=== PATIENT | female | born 1940 | race Caucasian/White ===

== ENCOUNTER 2017-03-17 14:24 | Emergency (ER) | payer OTHER, MEDICARE ==
[~2017-03-17] VITALS: Ht 170.2 cm; Wt 88.9 kg
[2017-03-17 16:00] LABS: BASOPHIL COUNT 0.1 K/uL (0-0.1); EOSINOPHIL (%) 3.2 % (0-5); EOSINOPHIL COUNT 0.3 K/uL (0-0.3); HEMATOCRIT 40.8 % (36.0-46.0); IMMATURE GRANULOCYTE (%) 0.3 % (0.0-0.7); INSTRUMENT ABS NEUTROPHIL CT 4.2 K/uL; LYMPHOCYTE COUNT 2.5 K/uL (1.0-2.8); MCH 28.8 PG (29.0-34.0); MCHC 33.8 G/DL (30.0-36.0); MEAN PLAT.VOLUME 9.1 uM^3 (9.5-12.4); MONOCYTE (%) 10.8 % (3-12); MONOCYTE COUNT 0.8 K/uL (0-0.8); NEUTROPHIL (%) 53.6 % (45-76); NEUTROPHIL COUNT 4.2 K/uL (1.8-6.4); PLATELET COUNT 401 K/uL (156-360); RBC DIS.WIDTH-CV 13.7 % (11.8-14.6); RBC DIS.WIDTH-SD 42.8 % (39-53); WHITE BLOOD COUNT 7.8 K/uL (4.1-10.2)
[2017-03-17 16:08] LABS: CHLORIDE 106 mEq/L (99-109); POTASSIUM 4.1 mEq/L (3.7-5.4); SODIUM 139 mEq/L (136-147)
[2017-03-17 16:09] LABS: MAGNESIUM 2.4 mg/dL (1.3-2.7)
[2017-03-17 16:10] LABS: GLUCOSE 91 mg/dL (70-99)
[2017-03-17 16:11] LABS: ANION GAP 10 MEQ/L (2-14)
[2017-03-17 16:14] LABS: GFR ESTIMATE (CALCULATED) > 59 mL/min/
[2017-03-17 16:15] LABS: UREA NITROGEN (BUN) 14 mg/dL (9-23)
[2017-03-17 16:21] LABS: ADD MIUA? NO; BILIRUBIN NEGATIVE; BLOOD NEGATIVE; COLOR STRAW ((YELLOW)); GLUCOSE (STRIP) NEGATIVE; KETONES NEGATIVE; LEUKOCYTES NEGATIVE; NITRITE NEGATIVE; PROTEIN (STRIP) NEGATIVE; SPECIFIC GRAVITY 1.006 (1.000-1.030); UCUL ADDED? NO; UROBILINOGEN 0.2 MG/DL (0.2-1.0)
[2017-03-17] MEDS ORDERED: LOMOTIL TABLET1 EACH PO (17:34)
[2017-03-17 18:09] VITALS: BP 133/85
== END 2017-03-17 18:09 | disposition home or self-care (01) ==
LOC: EDBD 14:24 → EME 14:24
PROVIDERS: Emergency Medicine
DX: R19.7 Diarrhea, unspecified (principal); Z88.1 Allergy status to other antibiotic agents; Z88.8 Allergy status to other drugs, medicaments and biological substances; Z88.2 Allergy status to sulfonamides; Z88.5 Allergy status to narcotic agent; I10 Essential (primary) hypertension
CPT/HCPCS: 80048; 81003; 83735; 85025; 99281; 99284; J7040

== ENCOUNTER 2018-01-30 05:24 | Inpatient (IN) | payer OTHER, MEDICARE ==
[~2018-01-30] VITALS: Ht 167.6 cm; Wt 86.0 kg
[~2018-01-30 05:24] MED LIST: LOMOTIL TABLET1 EACH PO
[2018-01-30 05:56] LABS: HEMATOCRIT 40.8 % (36.0-46.0); HEMOGLOBIN 14.2 G/DL (11.9-15.5); MCH 28.7 PG (29.0-34.0); MCHC 34.8 G/DL (30.0-36.0); MCV 82.4 FL (83-99); PLATELET COUNT 456 K/uL (156-360); RBC DIS.WIDTH-CV 14.7 % (11.8-14.6); RBC DIS.WIDTH-SD 43.8 % (39-53); RED BLOOD COUNT 4.95 M/uL (3.80-5.20); WHITE BLOOD COUNT 13.3 K/uL (4.1-10.2)
[2018-01-30 06:12] LABS: ALBUMIN 3.9 G/DL (3.2-4.8); CHLORIDE 103 MEQ/L (99-109); MAGNESIUM 1.8 mg/dl (1.3-2.7); POTASSIUM 3.9 MEQ/L (3.7-5.4); SODIUM 136 MEQ/L (136-147); TOTAL BILIRUBIN 0.7 MG/DL (0.0-1.0)
[2018-01-30 06:18] LABS: ALKALINE PHOSPHATASE 107 IU/L (3-129); ALT (GPT) 15 IU/L (3-49); AST (GOT) 21 IU/L (2-34); CREATININE 0.9 MG/DL (0.6-1.3); GFR ESTIMATE (CALCULATED) > 59 mL/min/; GLUCOSE 127 mg/dL (70-99); LIPASE 9 U/L (1.0-51.0); TOTAL PROTEIN 6.9 G/DL (6.4-8.3); UREA NITROGEN (BUN) 16 mg/dL (9-23)
[2018-01-30 07:39] LABS: TROP-I INTERPRETATION NEGATIVE; TROPONIN-I 0.01 ng/mL (0.0-0.30)
[2018-01-30 07:42] LABS: APPEARANCE CLEAR ((CLEAR)); BILIRUBIN NEGATIVE; BLOOD NEGATIVE; COLOR STRAW ((YELLOW)); GLUCOSE (STRIP) NEGATIVE; KETONES NEGATIVE; LEUKOCYTES NEGATIVE; NITRITE NEGATIVE; PROTEIN (STRIP) NEGATIVE; SPECIFIC GRAVITY 1.005 (1.000-1.030); UCUL ADDED? NO; UROBILINOGEN 0.2 MG/DL (0.2-1.0)
[2018-01-30] MEDS ORDERED: DILTIAZEM 24HR240 MG PO (07:51)
[2018-01-30] MEDS ORDERED: KLOR-CON M2020 MEQ PO (07:51)
[2018-01-30] MEDS ORDERED: VENTOLIN HFA18 GM IH (07:53)
[2018-01-30] MEDS ORDERED: FLONASE16 G1 BOTH NARES (07:53)
[2018-01-30] MEDS ORDERED: HYZAAR 100-11 TABLET PO (07:53)
[2018-01-30] MEDS ORDERED: LOW DOSE ASPIRI81 M1 PO (07:53)
[2018-01-30] MEDS ORDERED: VITAMIN D31000 UNIT PO (07:54)
[2018-01-30] MEDS ORDERED: CENTRUM SILVER1 EAC4 PO (07:55)
[2018-01-30] MEDS ORDERED: B-121000 MC2 PO (07:58)
[2018-01-30] MEDS ORDERED: GLUCOSAMINE &1 EAC1 PO (07:58)
[2018-01-30] MEDS ORDERED: CRANBERRY TABL1 EACH PO (07:58)
[2018-01-30] MEDS ORDERED: ANTIVERT12.5 MG PO (08:00)
[2018-01-30] MEDS ORDERED: ZOFRAN4 MG PO (08:00)
[2018-01-30 09:50] VITALS: BP 163/71
[2018-01-30 11:36] VITALS: BP 130/80
[2018-01-30 14:09] LABS: TROP-I INTERPRETATION NEGATIVE; TROPONIN-I < 0.01 ng/mL (0.0-0.30)
[2018-01-30 14:15] LABS: HDL CHOLESTEROL 37 MG/DL (Desirable>=50); LDL CHOLESTEROL 105 mg/dL (Desirable<100); NON-HDL CHOLESTEROL 126 mg/dL (Desirable<160); TOTAL CHOLESTEROL 163 mg/dL (Desirable<200); TRIGLYCERIDES 106 MG/DL (Normal: <150)
[2018-01-30 15:15] VITALS: BP 116/75
[2018-01-30 19:07] LABS: BASOPHIL (%) 0.4 % (0-1); EOSINOPHIL (%) 0.8 % (0-5); EOSINOPHIL COUNT 0.1 K/uL (0-0.3); HEMATOCRIT 41.2 % (36.0-46.0); HEMOGLOBIN 13.6 G/DL (11.9-15.5); IMMATURE GRANULOCYTE (%) 0.2 % (0.0-0.7); LYMPHOCYTE (%) 19.4 % (15-42); LYMPHOCYTE COUNT 2.1 K/uL (1.0-2.8); MCH 27.8 PG (29.0-34.0); MCV 84.1 FL (83-99); MONOCYTE (%) 10.8 % (3-12); MONOCYTE COUNT 1.2 K/uL (0-0.8); NEUTROPHIL (%) 68.4 % (45-76); NEUTROPHIL COUNT 7.3 K/uL (1.8-6.4); PLATELET COUNT 440 K/uL (156-360); RBC DIS.WIDTH-CV 14.8 % (11.8-14.6); RBC DIS.WIDTH-SD 45.4 % (39-53); WHITE BLOOD COUNT 10.7 K/uL (4.1-10.2)
[2018-01-30 19:20] LABS: INTER. NORMALIZED RATIO 1.2
[2018-01-30 19:23] LABS: ERTH.SED.RATE 37 MM/HR (0-30)
[2018-01-30 19:29] LABS: ALBUMIN 3.8 G/DL (3.2-4.8); ALKALINE PHOSPHATASE 119 IU/L (3-129); ALT (GPT) 27 IU/L (3-49); CHLORIDE 102 MEQ/L (99-109); GFR ESTIMATE (CALCULATED) 57 mL/min/; GLUCOSE 105 mg/dL (70-99); POTASSIUM 3.8 MEQ/L (3.7-5.4); SODIUM 136 MEQ/L (136-147); TOTAL BILIRUBIN 0.8 MG/DL (0.0-1.0); TOTAL PROTEIN 6.7 G/DL (6.4-8.3); UREA NITROGEN (BUN) 14 mg/dL (9-23)
[2018-01-30 19:30] LABS: AST (GOT) 34 IU/L (2-34)
[2018-01-30 20:00] VITALS: BP 122/69
[2018-01-30 20:33] LABS: TROP-I INTERPRETATION NEGATIVE; TROPONIN-I 0.02 ng/mL (0.0-0.30)
[2018-01-31] VITALS (7 sets, daily range): BP systolic 107–128; BP diastolic 61–76
[2018-01-31 05:12] LABS: HEMATOCRIT 39.3 % (36.0-46.0); HEMOGLOBIN 13.1 G/DL (11.9-15.5); MCH 28.3 PG (29.0-34.0); MCHC 33.3 G/DL (30.0-36.0); MCV 84.9 FL (83-99); PLATELET COUNT 390 K/uL (156-360); RBC DIS.WIDTH-CV 15.1 % (11.8-14.6); RBC DIS.WIDTH-SD 46.6 % (39-53); RED BLOOD COUNT 4.63 M/uL (3.80-5.20); WHITE BLOOD COUNT 10.1 K/uL (4.1-10.2)
[2018-01-31 06:08] LABS: CHLORIDE 104 MEQ/L (99-109); GFR ESTIMATE (CALCULATED) 57 mL/min/; GLUCOSE 99 mg/dL (70-99); POTASSIUM 3.9 MEQ/L (3.7-5.4); SODIUM 138 MEQ/L (136-147); UREA NITROGEN (BUN) 15 mg/dL (9-23)
[2018-01-31 15:26] LABS: CARCINOEMBR.ANTIGEN 0.9 NG/ML
[2018-02-01 04:09] VITALS: BP 103/64
[2018-02-01 08:00] VITALS: BP 117/72
[2018-02-01 11:09] VITALS: BP 102/53
[2018-02-01 16:42] VITALS: BP 121/78
[2018-02-01 19:07] VITALS: BP 131/74
[2018-02-01 23:17] VITALS: BP 126/63
[2018-02-02 03:28] VITALS: BP 132/69
[2018-02-02 05:25] LABS: HEMATOCRIT 34.2 % (36.0-46.0); HEMOGLOBIN 11.4 G/DL (11.9-15.5); MCH 28.4 PG (29.0-34.0); MCHC 33.3 G/DL (30.0-36.0); MCV 85.1 FL (83-99); PLATELET COUNT 362 K/uL (156-360); RBC DIS.WIDTH-SD 46.7 % (39-53); RED BLOOD COUNT 4.02 M/uL (3.80-5.20); WHITE BLOOD COUNT 6.9 K/uL (4.1-10.2)
[2018-02-02 05:52] LABS: CHLORIDE 105 MEQ/L (99-109); CREATININE 0.8 MG/DL (0.6-1.3); GFR ESTIMATE (CALCULATED) > 59 mL/min/; GLUCOSE 98 mg/dL (70-99); POTASSIUM 3.9 MEQ/L (3.7-5.4); SODIUM 139 MEQ/L (136-147); UREA NITROGEN (BUN) 13 mg/dL (9-23)
[2018-02-02 07:07] VITALS: BP 152/86
[2018-02-02] MEDS ORDERED: ELIQUIS5 MG PO (10:27)
[2018-02-02] MEDS ORDERED: ATORVASTATIN CA40 MG PO (10:27)
[2018-02-02] MEDS ORDERED: NITROSTAT0.4 MG SL (10:27)
[2018-02-02 12:15] VITALS: BP 144/91
== END 2018-02-02 14:25 | disposition home or self-care (01) | DRG 375 ==
LOC: EME → EDBD 05:24 → EME 05:24 → 4SOUTH 08:13 → EDOF 08:13 → ENRESERV 08:27 → EDOF 08:53 → 4SOUTH 09:16
PROVIDERS: Emergency Medicine; Hospitalist; Internal Medicine; Physician Assistant Medical
PROC: 0DBU3ZX Excision of Omentum, Percutaneous Approach, Diagnostic (ICD-10-PCS; principal; 2018-01-31)
DX: C78.6 Secondary malignant neoplasm of retroperitoneum and peritoneum (principal); I25.119 Atherosclerotic heart disease of native coronary artery with unspecified angina pectoris; I10 Essential (primary) hypertension; J98.11 Atelectasis; E86.0 Dehydration; K58.9 Irritable bowel syndrome, unspecified; R65.10 Systemic inflammatory response syndrome (SIRS) of non-infectious origin without acute organ dysfunction; R79.1 Abnormal coagulation profile; K76.0 Fatty (change of) liver, not elsewhere classified; D72.829 Elevated white blood cell count, unspecified; Z86.718 Personal history of other venous thrombosis and embolism; I34.1 Nonrheumatic mitral (valve) prolapse; Z85.41 Personal history of malignant neoplasm of cervix uteri; E66.9 Obesity, unspecified; Z68.30 Body mass index [BMI] 30.0-30.9, adult; R18.0 Malignant ascites; J45.20 Mild intermittent asthma, uncomplicated
CPT/HCPCS: 71046; 71275; 74176; 77012; 80048; 80053; 80061; 81003; 82378; 83605; 83615; 83690; 83735; 84484; 85025; 85027; 85379; 85610; 85651; 86304; 87040; 88305; 88341 TC; 88342 TC; 93005; 93306; 99202; 99281; 99285; G0378; J1650; J2405; J2543; J3010; J7030; J7050; J7120

== ENCOUNTER → 2018-05-23 | Outpatient (CLI) | payer OTHER, MEDICARE ==
[~2018-05-23] VITALS: Ht 167.6 cm; Wt 81.8 kg
[~2018-05-23] MED LIST changes: +ANTIVERT12.5 MG PO; +ATORVASTATIN CA40 MG PO; +B-121000 MC2 PO; +BENADRYL25 MG PO; +CENTRUM SILVER1 EAC4 PO; +CRANBERRY TABL1 EACH PO; +DILTIAZEM 24HR240 MG PO; +ELIQUIS5 MG PO; +ERYTHROMYC1 APPLICAT RIGHT EYE; +FLONASE16 G1 BOTH NARES; +GLUCOSAMINE &1 EAC1 PO; +HYZAAR 100-11 TABLET PO; +KLOR-CON M2020 MEQ PO; +LOW DOSE ASPIRI81 M1 PO; +MECLIZINE HCL12.5 M1 PO; +NITROSTAT0.4 MG SL; +TRAMADOL HCL50 MG PO; +VENTOLIN HFA18 GM IH; +VITAMIN D31000 UNIT PO; +ZOFRAN4 MG PO
[2018-05-23 09:38] VITALS: BP 143/86
[2018-05-23 09:42] LABS: HEMATOCRIT 32.3 % (36.0-46.0); HEMOGLOBIN 11.1 G/DL (11.9-15.5); MCH 32.3 PG (29.0-34.0); MCHC 34.4 G/DL (30.0-36.0); MCV 93.9 FL (83-99); RBC DIS.WIDTH-CV 19.6 % (11.8-14.6); RBC DIS.WIDTH-SD 66.4 % (39-53); RED BLOOD COUNT 3.44 M/uL (3.80-5.20); WHITE BLOOD COUNT 3.8 K/uL (4.1-10.2)
[2018-05-23 09:48] LABS: PLATELET COUNT 232 K/uL (156-360)
[2018-05-23 10:09] LABS: ALBUMIN 4.1 G/DL (3.2-4.8); ALKALINE PHOSPHATASE 88 IU/L (3-129); ALT (GPT) 9 IU/L (3-49); AST (GOT) 13 IU/L (2-34); CHLORIDE 102 MEQ/L (99-109); CREATININE 0.8 MG/DL (0.6-1.3); GFR ESTIMATE (CALCULATED) > 59 mL/min/; GLUCOSE 111 mg/dL (70-99); LIPASE 8 U/L (1.0-51.0); POTASSIUM 3.6 MEQ/L (3.7-5.4); SODIUM 138 MEQ/L (136-147); TOTAL BILIRUBIN 0.5 MG/DL (0.0-1.0); TOTAL PROTEIN 6.4 G/DL (6.4-8.3); UREA NITROGEN (BUN) 18 mg/dL (9-23)
[2018-05-23 11:23] VITALS: BP 165/93
[2018-05-23 12:41] LABS: BASOPHIL (%) 0.3 % (0-1); EOSINOPHIL (%) 0.8 % (0-5); IMMATURE GRANULOCYTE (%) 0.3 % (0.0-0.7); LYMPHOCYTE (%) 24.2 % (15-42); LYMPHOCYTE COUNT 0.9 K/uL (1.0-2.8); MONOCYTE COUNT 0.5 K/uL (0-0.8); NEUTROPHIL (%) 60.4 % (45-76); NEUTROPHIL COUNT 2.3 K/uL (1.8-6.4)
== END | disposition home or self-care (01) ==
LOC: IVINF 09:00
PROVIDERS: Internal Medicine
DX: E86.0 Dehydration (principal)
CPT/HCPCS: 80053; 83690; 85025; 85027; 96361; 96374; 96375; J2270; J2405; J7030